=== PATIENT | male | born 1940 | race Caucasian/White ===

== ENCOUNTER 2017-05-30 16:59 | Emergency (ER) | payer MEDICARE ==
[2017-05-30] MEDS ORDERED: Adacel (T-DAP) 0.5 ML VIAL ONE (17:13)
[2017-05-30] MEDS ORDERED: Bupivacaine 0.5% 10 ML VIAL ONE (17:13)
--- NOTE | 2017-05-30 18:20 | RAD ---
LEFT FINGER TWO VIEW: History: Injury. Comparison: None. FINDINGS: Traumatic soft tissue and osseous laceration through the index and ring finger prem distal phalanges . These are open injuries. 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 IMPRESSION: 1. Traumatic soft tissue and osseous lacerations through the prem of the distal phalanges of the rin g and index fingers. 2. Scattered degenerative changes. POS: [facility]
[2017-05-30] MEDS ORDERED: Bacitracin Zinc 1 Packet ONE (18:23)
[2017-05-30] MEDS ORDERED: Amoxicillin/Potassium Clav 875 MG TAB ONE (18:38)
== END 2017-05-30 18:48 | disposition home or self-care (01) ==
LOC: NAV ERS 16:59
DX: S62.635B Displaced fracture of distal phalanx of left ring finger, initial encounter for open fracture (principal); S62.631B Displaced fracture of distal phalanx of left index finger, initial encounter for open fracture; S61.315A Laceration without foreign body of left ring finger with damage to nail, initial encounter; I10 Essential (primary) hypertension; Z87.891 Personal history of nicotine dependence; Z23 Encounter for immunization; W29.3XXA Contact with powered garden and outdoor hand tools and machinery, initial encounter
CPT/HCPCS: 12002; 90471; 90715; J3490

== ENCOUNTER 2019-05-11 12:32 | Emergency (ER) | payer MEDICARE, OTHER ==
[2019-05-11] MEDS ORDERED: Guaifenesin DM 100-10/5 ML UDCUP ONE (12:51)
--- NOTE | 2019-05-11 13:26 | RAD ---
Portable frontal chest radiograph: 05/11/2019 COMPARISON: 10/16/2018 HISTORY: Constant cough FINDINGS: Lungs are clear. Heart and mediastinal contours appear within normal limits. There is ather osclerotic calcification of the aortic arch. IMPRESSION: No acute findings.
== END 2019-05-11 13:37 | disposition home or self-care (01) ==
LOC: NAV ERS 12:32
DX: J06.9 Acute upper respiratory infection, unspecified (principal); I10 Essential (primary) hypertension; Z87.891 Personal history of nicotine dependence; Z79.82 Long term (current) use of aspirin; Z79.899 Other long term (current) drug therapy
CPT/HCPCS: 71045; 94640; J7620

== ENCOUNTER 2021-10-24 08:51 | Emergency (ER) | payer MEDICARE | END 2021-10-24 10:47 | disposition home or self-care (01) | LOC: NAV ERS 08:51 | DX: S62.637B Displaced fracture of distal phalanx of left little finger, initial encounter for open fracture (principal); S60.413A Abrasion of left middle finger, initial encounter; E78.2 Mixed hyperlipidemia; I10 Essential (primary) hypertension; F17.210 Nicotine dependence, cigarettes, uncomplicated; Z79.899 Other long term (current) drug therapy; Z79.82 Long term (current) use of aspirin; W23.0XXA Caught, crushed, jammed, or pinched between moving objects, initial encounter ==